=== PATIENT | female | born 1960 | race Caucasian/White ===

== ENCOUNTER 2023-01-29 07:25 | Outpatient (CLI) | payer OTHER, SELFPAY ==
--- NOTE | ~2023-01-29 | US_ITS ---
US right upper quadrant INDICATION: Right upper quadrant abdominal pain PROCEDURE: Realtime right upper abdominal ultrasound. COMPARISON: No prior studies for comparison. FINDINGS: The pancreas is normal without focal mass or pancreatic ductal dilation. Liver echotexture is diffusely increased, consistent with fatty infiltration. There is normal directional flow in the portal vein. Gallbladder contains debris multiple small echogenic foci internally. No significant gallbladder wall thickening or pericholecystic fluid. Common bile duct measures 8 mm. No sonographic Vera's sign. IMPRESSION: 1: Distended gallbladder with debris, consistent with sludge. Cannot exclude small stones. Biliary di latation measuring 8 mm. Consider cholecystitis in the appropriate clinical setting. 2: Hepatic steatosis. Reviewed, dictated and finalized at location A. IMPRESSION: 1: Distended gallbladder with debris, consistent with sludge. Cannot exclude sm all stones. Biliary dilatation measuring 8 mm. Consider cholecystitis in the ap propriate clinical setting. 2: Hepatic steatosis.
== END 2023-01-29 07:26 | disposition home or self-care (01) ==
LOC: CHSIMG 07:28
PROVIDERS: PCP Nurse Practitioner
DX: R10.11 Right upper quadrant pain (principal); K76.0 Fatty (change of) liver, not elsewhere classified
CPT/HCPCS: 76705